=== PATIENT | female | born 1970 | race Caucasian/White ===

== ENCOUNTER → 2024-04-14 10:20 | Outpatient (CLI) | payer OTHER, SELFPAY ==
--- NOTE | 2024-04-14 10:24 | DI.US.S_ITS ---
PROCEDURE: US ABDOMEN LIMITED INDICATIONS: ABNORMAL LIVER FUNCTION TESTS TECHNIQUE: Real-time scanning was performed of the abdominal and retroperitoneal organs, with image documentation. COMPARISON: None. FINDINGS: Liver: Liver is normal in size and homogeneous in echotexture. Increased liver echogenicity, likely mild hepatic steatosis. Echogenic focus in the right hepatic lobe measuring 6 x 4 x 4 millimeter. Gallbladder: No stones or wall thickening. Biliary ducts: Intrahepatic bile ducts are non-dilated. Extrahepatic bile duct caliber measures 5 mm. Normal is 6-7 mm or less in diameter, or 10 mm or less post-cholecystectomy. Pancreas: Visualized portions of the pancreas are sonographically normal. Miscellaneous: No free abdominal fluid. IMPRESSION: Mildly increased liver echogenicity, probably mild hepatic steatosis. 6 x 4 x 4 millimeter echogenic focus in the right hepatic lobe. This probably represents a small hemangioma in the absence of malignancy or metastatic disease. Consider six-month follow-up with ultrasound given underlying hepatic steatosis. Dictated by: Kevin Bentley M.D. on 04/14/2024 at 15:10 Approved by: Kevin Bentley M.D. on 04/14/2024 at 15:13
== END ==
PROVIDERS: PCP Naturopath; Referring Provider Naturopath; Visit Provider Naturopath
DX: R94.5 Abnormal results of liver function studies (principal)
CPT/HCPCS: 76705

== ENCOUNTER 2024-11-26 09:54 | Emergency (ER) | payer OTHER, SELFPAY ==
[2024-11-26 09:58] VITALS: BP 124/76; PULSE 75; RESP 16; TEMP 36.6; O2SAT 100; BMI 17.9
--- NOTE | 2024-11-26 12:08 | ED_ITS ---
HPI - Back Pain/Injury <Tameka Curry PA-C - Last Filed: 11/26/24 13:02> General Chief Complaint: Back Pain/Injury Stated Complaint: lower back pain Time Seen by Provider: 11/26/24 11:39 History of Present Illness HPI Narrative: 54-year-old male presents with some low back discomfort that began a few weeks ago. She is denying any known injury, no numbness or tingling or weakness, no issues with bowel or bladder. She was evaluated by a chiropractor last Wednesday as she has some chronic upper shoulder and neck tension that she had work done mainly her left shoulder and right rhomboid region, but no aggressive manipulation with the lower back. She states the chiropractor thought maybe she had some issues with a disc. She is denying any foot drop, no disruption during sleep. She does note that certain chairs are more difficult for her height, she had difficulty sitting on the commode because it was so low but this morning in the fast track she had no difficulty which is an improvement. She avoid taking medication, as it makes her feel itchy? but she does show me a bottle from [facility] of Tylenol and methocarbamol 400 mg that was given to her by a friend but she is yet to try it. She has had no medications today, no regular Tylenol or ibuprofen usage, no topicals, she has been using ice and heat as well as her hot bath. The ice seemed to help. She reports a few weeks ago she noticed some soreness in her left lateral foot and hip that resolved but now she has more pain in the lower back. She reports tightness, no surgical history or orthopedic injuries, no regular sports except she does yoga regularly. She works as an secondary school special ed teacher and does drive 45 minutes to an [address] from work needless to say this is prolonged sitting. She currently sees a assistant front desk manager in [facility], no regular medications. She is menopausal, All other systems are reviewed and are negative. Related Data Allergies Allergy/AdvReac Type Severity Reaction Status Date / Time niacin AdvReac Verified 11/26/24 12:26 Opioids - Morphine Analogues AdvReac Palpitation Verified 11/26/24 12:26 s Review of Systems <Tameka Curry PA-C - Last Filed: 11/26/24 13:02> Review of Systems Narrative: All other systems reviewed and are negative. Exam <Tameka Curry PA-C - Last Filed: 11/26/24 13:02> Initial Vital Signs Initial Vital Signs: Vital Signs Temperature 97.8 F 11/26/24 09:58 Pulse Rate 75 11/26/24 09:58 Respiratory Rate 16 11/26/24 09:58 Blood Pressure 124/76 11/26/24 09:58 Pulse Oximetry 100 11/26/24 09:58 Oxygen Delivery Method Room Air 11/26/24 09:58 Vital signs reviewed and are normal. Const General: cooperative, healthy appearing, comfortable, well developed, well groomed and No acute distress Other: BMI 17.9, slender, no muscle wasting. Neck Neck: normal visual inspection, full ROM, trachea midline and supple Chest Chest: normal inspection of the chest Resp Effort & Inspection: normal respiratory effort Auscultation: clear to auscultation bilaterally Cardio Rate: regular rate Rhythm: regular rhythm GI Inspection: normal to inspection, no abdominal wall ecchymosis, no edema and non-distended Palpation: soft and no hepatosplenomegaly Auscultation: normal bowel sounds Back/Spine/Pelvis Back: normal to inspection, No CVA tenderness, No ecchymosis, No erythema and No warmth Cervical Spine: normal cervical lordosis and cervical ROM normal Thoracic/Lumbar Spine: thoracic and lumbar spine normal to inspection and thoraco-lumbar ROM normal Sacroiliac Joints: nontender Other: Active range of motion is intact, pain is reproduced with lateral bending to either side, no focal bony midline tenderness, mild tenderness to the lumbar sacral paraspinous tissues without swelling or guarding. Single leg strength is grossly intact she has full active hip ROM, no trochanteric tenderness, ITB bands are nontender. Incidental finding of a palpable spasm and not in her right upper trapezium and rhomboid region without guarding, full active shoulder range of motion, neck is also grossly intact, a little tenderness of the base of her paracervical insertions without guarding. No focal deficits. Skin General: no rashes or lesions noted, elasticity normal and turgor normal Neuro General: patient alert, patient awake and patient oriented x3 DTR's: Rt Patellar: 1+, Lt Patellar: 1+, Rt Ankle: 1+ and Lt Ankle: 1+ Plantar Reflexes: Downgoing: bilateral Other: Normal gait, no foot drop, distal neurovascular is grossly intact. Extrem Other: Ambulatory, able to rise from a seated to a standing position without difficulty or assistance. Full active range of motion of her lower extremities, equal install and repair technician strength, shoulder ROM is grossly intact. No deficits. <Oliva Aviles DO - Last Filed: 11/27/24 08:43> Initial Vital Signs Initial Vital Signs: Vital Signs Temperature 97.8 F 11/26/24 09:58 Pulse Rate 75 11/26/24 09:58 Respiratory Rate 16 11/26/24 09:58 Blood Pressure 124/76 11/26/24 09:58 Pulse Oximetry 100 11/26/24 09:58 Oxygen Delivery Method Room Air 11/26/24 09:58 Course <Tameka Curry PA-C - Last Filed: 11/26/24 13:02> Orders Ordered: Discontinued Medications Ketorolac Tromethamine (Ketorolac 30 Mg/Ml Vial) 15 mg IM NOW ONE Stop: 11/26/24 12:29 Last Admin: 11/26/24 12:35 Dose: 15 mg Documented By: SB Vital Signs Vital signs: Vital Signs - 8 hr 11/26/24 09:58 11/26/24 12:50 Temperature 97.8 F 98.6 F Pulse Rate 75 58 L Respiratory Rate 16 16 Blood Pressure 124/76 128/77 Pulse Oximetry 100 99 Oxygen Delivery Method Room Air Room Air <Oliva Aviles DO - Last Filed: 11/27/24 08:43> Orders Ordered: Discontinued Medications Ketorolac Tromethamine (Ketorolac 30 Mg/Ml Vial) 15 mg IM NOW ONE Stop: 11/26/24 12:29 Last Admin: 11/26/24 12:35 Dose: 15 mg Documented By: SB Vital Signs Vital signs: Vital Signs - 8 hr 11/26/24 09:58 11/26/24 12:50 Temperature 97.8 F 98.6 F Pulse Rate 75 58 L Respiratory Rate 16 16 Blood Pressure 124/76 128/77 Pulse Oximetry 100 99 Oxygen Delivery Method Room Air Room Air MDM - Back Pain/Injury <Tameka Curry PA-C - Last Filed: 11/26/24 13:02> MDM Narrative Medical decision making narrative: No clinical findings on examination to warrant radiography. No focal neurologic deficits, strength is intact, mild discomfort in the paraspinous tissues of her lumbar sacral region, active range of motion is intact but her pain is reproducible with lateral bending causing tightness. Single leg strength is intact. No clinical findings to suggest an acute neurologic emergency, no cauda equina, her SI joints are equal, a little tenderness but no guarding, full hip ROM no ITB band tenderness. Deep tendon reflexes are equal and grossly intact. Sensory is intact. No muscle wasting. We discussed the use of medication, topicals, ice and heat, she agrees to a trial of Toradol 15 mg intramuscularly. Mild improvement, no adverse reaction. She was observed for 15 minutes in- house. I have asked her to follow up with her assistant front desk manager, physical therapy can be quite helpful, we discussed ergonomics, avoid prolonged sitting, adjusting her car seat, she may use the Tylenol methocarbamol that she has, she might try cutting it in half as she is drug naive. She has informed not to drive with this medication as it was a muscle relaxant. Make sure she hydrates, red flag warning signs reviewed in great detail to police seek medical attention if she has any persistent symptoms, any new worrisome symptoms, or any other concerns. Discharge Plan Departure Patient Disposition: Home Clinical Impression: Low back pain Qualifiers: Chronicity: acute Back pain laterality: left Sciatica presence: with sciatica Sciatica laterality: sciatica of left side Qualified Code(s): M54.42 - Lumbago with sciatica, left side Instructions: DI for Back Pain With Sciatica, DI for Back Strain or Sprain Activity Restrictions/Additional Instructions: You have been treated with a strong anti-inflammatory called Toradol 15 mg, I would avoid any additional NSAID use until dinnertime such as ibuprofen. You m ay wish to consider a 3 day trial of [id number] ibuprofen 400 mg every 8 hours with food for full anti-inflammatory effect. The medication you showed me the Tylenol with methocarbamol is a good pain reliever with muscle relaxant usually this is a prescription medication and should be used with caution as methocarbamol as a muscle relaxant and can cause sedation so no driving or alcohol with this medication. You may wish to try it or cut it in half and see how you do following the medication instructions. I recommend you continue ice 10-15 minutes at a time several times a day, use pillows to raise your legs during sleeping or lay on her side place a pillow between your hips and legs to prevent malalignment, look at your chairs and make sure your seated with your legs spread and feet flat on the ground as this will tilts her pelvis and prevent slouching. Do follow up with your primary care provider if symptoms persist as you may benefit from physical therapy which can require a prescription referral. Red flag warning signs include increased pain, any numbness, weakness, any issues with bowel or bladder such as retention or incontinence do not hesitate to return to the emergency department immediately. Back strains and sprains can take a few weeks to settle down, if there is a disc bulge or swelling it can press on the nerve and cause pain going down the leg or buttock so again please do follow up with your PCP to prevent chronic issues. Avoid heavy lifting, bending from the waist or any activities that cause pain, continue your yoga as tolerated again do not cause new or further injury. Referrals: Ladi Montanez ND [Primary Care Provider] - Stand Alone Forms: Patient Portal/API/Survey ED Sign-out <Oliva Aviles DO - Last Filed: 11/27/24 08:43> Cosign ED Attending Irisature Attestation: I was available for consultation.
[2024-11-26] MEDS: KETOROLAC 30 MG/ML VIAL 15 MG IM (12:35)
[2024-11-26 12:50] VITALS: BP 128/77; PULSE 58; RESP 16; TEMP 37; O2SAT 99
== END 2024-11-26 12:50 | disposition home or self-care (01) ==
PROVIDERS: Emergency Provider Physician Assistant Medical; PCP Naturopath
DX: M54.42 Lumbago with sciatica, left side (principal)
CPT/HCPCS: 96372; 99283; 99284; J1885